=== PATIENT | female | born 1990 | race Caucasian/White ===

== ENCOUNTER 2017-06-29 23:19 | Inpatient (IN) | payer SELFPAY ==
[~2017-06-29] VITALS: Ht 154.9 cm; Wt 57.6 kg
[2017-06-29] MEDS: IV RINGERS SOLUTION,LACTATED 1,000 ML IV SCH (23:20)
--- NOTE | 2017-06-29 23:32 | ED.ADGEN ---
Adult General Chief Complaint Chief Complaint " I took trazodone instead of ibuprofen.. I took some yesterday... and some this morning.... I thought I was taking Ibuprofen... HPI HPI Patient is a 27 year old female who presents with mental status change after overdosage of trazodone. Pt. reportedly took 7 - 100 mg trazodone's this morning. Hx of increased confusion and fatigue. Pt some what poor historian. Pt denies other drug or alcohol use. No recent travel, trauma or ill contacts. Pt. reports she has had a headache the past 2 days. Review of Systems Review of Systems Constitutional: Denies fever or chills [] Eyes: Denies change in visual acuity, redness, or eye pain [] HENT: Denies nasal congestion or sore throat [] Respiratory: Denies cough or shortness of breath [] Cardiovascular: No additional information not addressed in HPI [] GI: Denies abdominal pain, nausea, vomiting, bloody stools or diarrhea [] : Denies dysuria or hematuria [] Musculoskeletal: Denies back pain or joint pain [] Integument: Denies rash or skin lesions [] Neurologic: Hx of headache. denies, focal weakness or sensory changes [] Pt. reportedly very sedated at home - per family Endocrine: Denies polyuria or polydipsia [] All other systems were reviewed and found to be within normal limits, except as documented in this note. Family History Family History Non-contributory Current Medications Current Medications See Nursing for home meds. Allergies Allergies PCN Physical Exam Physical Exam Constitutional: Well developed, well nourished, no acute distress, intoxicated in appearance. [] HENT: Normocephalic, atraumatic, bilateral external ears normal, oropharynx moist, no oral exudates, nose normal. [] Eyes: PERRLA, EOMI, conjunctiva normal, no discharge. [] Neck: Normal range of motion, no tenderness, supple, no stridor. [] Cardiovascular. Bradycardia :Heart rate regular rhythm, no murmur [] Lungs & Thorax: Bilateral breath sounds few wheezes on auscultation [] Abdomen: Bowel sounds normal, soft, no tenderness, no masses, no pulsatile masses. [] Skin: Warm, dry, no erythema, no rash. [] Back: No tenderness, no CVA tenderness. [] Extremities: No tenderness, no cyanosis, no clubbing, ROM intact, no edema. [] Neurologic: Alert and oriented X2, Very sedated, Moves all ext. with noxious stimuli and cross protects, no gross focal deficits noted. DTR + 2 patella and brachial. Awakens with noxious stimuli and will answer questions,but falls back asleep. Psychologic: Affect flat, judgement poor insight, mood depressed. Current Patient Data Lab Results Laboratory Tests Test 06/29/17 22:45 06/29/17 23:25 POC Urine HCG, Qualitative hcg negative (Negative) White Blood Count 6.8 x10^3/uL (4.0-11.0) Red Blood Count 4.21 x10^6/uL (3.50-5.40) Hemoglobin 13.0 g/dL (12.0-15.5) Hematocrit 38.4 % (36.0-47.0) Mean Corpuscular Volume 91 fL (79-100) Mean Corpuscular Hemoglobin 31 pg (25-35) Mean Corpuscular Hemoglobin Concent 34 g/dL (31-37) Red Cell Distribution Width 14.4 % (11.5-14.5) Platelet Count 286 x10^3/uL (140-400) Neutrophils (%) (Auto) 43 % (31-73) Lymphocytes (%) (Auto) 43 % (24-48) Monocytes (%) (Auto) 9 % (0-9) Eosinophils (%) (Auto) 4 % (0-3) H Basophils (%) (Auto) 1 % (0-3) Neutrophils # (Auto) 2.9 x10^3uL (1.8-7.7) Lymphocytes # (Auto) 2.9 x10^3/uL (1.0-4.8) Monocytes # (Auto) 0.6 x10^3/uL (0.0-1.1) Eosinophils # (Auto) 0.3 x10^3/uL (0.0-0.7) Basophils # (Auto) 0.0 x10^3/uL (0.0-0.2) Prothrombin Time 10.5 SEC (9.4-11.4) Prothrombin Time INR 1.0 (0.9-1.1) PTT 23 SEC (23-33) Sodium Level 142 mmol/L (136-145) Potassium Level 2.9 mmol/L (3.5-5.1) *L Chloride Level 106 mmol/L (98-107) Carbon Dioxide Level 22 mmol/L (21-32) Anion Gap 14 (6-14) Blood Urea Nitrogen 4 mg/dL (7-20) L Creatinine 0.8 mg/dL (0.6-1.0) Estimated GFR (Cockcroft-Gault) 87.4 Glucose Level 123 mg/dL (70-99) H Calcium Level 8.3 mg/dL (8.5-10.1) L Magnesium Level 2.3 mg/dL (1.8-2.4) Total Bilirubin 0.2 mg/dL (0.2-1.0) Direct Bilirubin 0.1 mg/dL (0.0-0.2) Aspartate Amino Transferase (AST) 24 U/L (15-37) Alanine Aminotransferase (ALT) 19 U/L (14-59) Alkaline Phosphatase 78 U/L (46-116) Total Protein 6.9 g/dL (6.4-8.2) Albumin 3.5 g/dL (3.4-5.0) Salicylates Level 4.3 mg/dL (2.8-20.0) Salicylate Last Dose Date Unknown Salicylate Last Dose Time Unknown Acetaminophen Level > 2.0 mcg/mL (10-30) L Acetaminophen Last Dose Date Unknown Acetaminophen Last Dose Time Unknown Ethyl Alcohol Level 181 mg/dL (0-10) H EKG EKG My interpretation of EKG shows a sinus bradycardia at 53 bpm, with prolonged QT interval. Some nonspecific anterior lateral changes.[] Radiology/Procedures Radiology/Procedures My interpretation of chest x-ray shows no acute cardiopulmonary findings. My interpretation CT head shows no shift, mass, edema, bleed, or fracture.[] Course & Med Decision Making Course & Med Decision Making Pertinent Labs and Imaging studies reviewed. (See chart for details) Discussed presentation, testing and tx plan with Dr. Wakefield- Admit for observation and hemodynamic support. [] Final Impression Final Impression 1. Drug Overdose[]-trazodone 2. Hypokalemia 3. Polysubstance abuse - Meth use 4. ETOH abuse Problems: Dragon Disclaimer Dragon Disclaimer This electronic medical record was generated, in whole or in part, using a voice recognition dictation system. SHAINA CHANDLER MD Jun 29, 2017 23:32
[2017-06-29] MEDS ORDERED: SODIUM BICARB ADULT 8.4% 50 MEQ/50 ML DISP.SYRIN. IV ONE (23:45)
[2017-06-29] MEDS ORDERED: MVI, ADULT NO.4 WITH VIT K 10 ML, FOLIC ACID SYRINGE for ER 1 MG, THIAMINE 100 MG in IV... IV SCH ×4 (23:45)
[2017-06-29] MEDS ORDERED: MAGNESIUM SULFATE 2GM 50 ML IV ONE (23:45)
[2017-06-29 23:59] LABS: BASO % 1 % (0-3); EOS # 0.3 x10^3/uL (0.0-0.7); EOS % 4 % (0-3); HEMATOCRIT 38.4 % (36.0-47.0); LYMPH # 2.9 x10^3/uL (1.0-4.8); LYMPH % 43 % (24-48); MEAN CORPUSCULAR HEMOGLOBIN 31 pg (25-35); MEAN CORPUSCULAR HGB CONC 34 g/dL (31-37); MEAN CORPUSCULAR VOLUME 91 fL (79-100); MONO # 0.6 x10^3/uL (0.0-1.1); MONO % 9 % (0-9); NEUT # 2.9 x10^3uL (1.8-7.7); NEUT % 43 % (31-73); PLATELET COUNT 286 x10^3/uL (140-400); RED BLOOD COUNT 4.21 x10^6/uL (3.50-5.40); RED CELL DISTRIBUTION WIDTH 14.4 % (11.5-14.5); WHITE BLOOD COUNT 6.8 x10^3/uL (4.0-11.0)
[2017-06-30] VITALS (11 sets, daily range): BP systolic 85–124; BP diastolic 42–68
[2017-06-30 00:03] LABS: BILIRUBIN,URINE NEG (NEG); CLARITY,URINE CLEAR; COLOR,URINE STRAW; GLUCOSE,URINE NEG (NEG)
[2017-06-30 00:04] LABS: BACTERIA,URINE FEW /HPF (0-FEW); BARBITURATES NEG (NEG); BENZODIAZEPINES NEG (NEG); CANNABINOIDS NEG (NEG); COCAINE NEG (NEG); METHADONE NEG (NEG); NITRITE,URINE NEG (NEG); OPIATES NEG (NEG); PHENCYCLIDINE NEG (NEG); RBC,URINE OCC /HPF (0-2); SQUAMOUS EPITHELIAL CELL,UR OCC /LPF; UROBILINOGEN,URINE 0.2 mg/dL (0.2 mg/dL); WBC,URINE OCC /HPF (0-4)
[2017-06-30 00:05] LABS: ACETAMIN > 2.0 mcg/mL (10-30); ETHANOL 181 mg/dL (0-10); SALIC 4.3 mg/dL (2.8-20.0)
[2017-06-30 00:07] LABS: AMPHETAMINE/METHAMPHETAMINE POS (NEG)
[2017-06-30] MEDS ORDERED: MAGNESIUM SULFATE 2GM 50 ML IV ONE (00:11)
[2017-06-30] MEDS ORDERED: SODIUM BICARB ADULT 8.4% 50 MEQ/50 ML DISP.SYRIN. ONE ×2 (00:11→00:12)
[2017-06-30] MEDS ORDERED: THIAMINE 200 MG/2 ML VIAL. IV ONE (00:11)
[2017-06-30] MEDS ORDERED: MVI, ADULT NO.4 WITH VIT K 10 ML VIAL IV ONE (00:11)
[2017-06-30] MEDS ORDERED: FOLIC ACID 5 MG/ML SYRINGE for ER IV ONE (00:11)
[2017-06-30 00:15] LABS: ALBUMIN 3.5 g/dL (3.4-5.0); CALCIUM 8.3 mg/dL (8.5-10.1); CREATININE 0.8 mg/dL (0.6-1.0); DIRECT BILIRUBIN 0.1 mg/dL (0.0-0.2); GFR 87.4; MAGNESIUM 2.3 mg/dL (1.8-2.4); TOTAL BILIRUBIN 0.2 mg/dL (0.2-1.0); TOTAL PROTEIN 6.9 g/dL (6.4-8.2)
[2017-06-30 00:18] LABS: POTASSIUM 2.9 mmol/L (3.5-5.1)
[2017-06-30] MEDS ORDERED: POTASSIUM CL 40MEQ IN 0.9%NACL 1,000 ML IV ONE (00:30)
--- NOTE | 2017-06-30 00:42 | RAD ---
CT Head W/O Contrast: History: 618220.001 Headache, mental status changes, lethargic, accidental overdose. No priors. Comparison: none Axial images were obtained without contrast. The miller and white matter appears normal and symmetrical for the patients age. There is no mass effect, extraaxial fluid collections or hydrocephalus. There is no gross bleed. There is no focal loss of miller-white matter distinction to suggest acute ischemia, i.e. stroke. Impression: No acute findings. RS Compliance Statement: One or more of the following individualized dose reduction techniques were utilized for this examination: 1. Automated exposure control 2. Adjustment of the mA and/or kV according to patient size 3. Use of iterative reconstruction technique Electronically signed by: John Vigil III, MD (06/30/2017 12:39 AM) [id number]
[2017-06-30] MEDS ORDERED: ONDANSETRON PF 4 MG/2 ML VIAL. IV PRN (00:45)
[2017-06-30] MEDS ORDERED: LORazepam 2 MG/ML VIAL IV PRN (04:45)
--- NOTE | 2017-06-30 06:09 | EKG ---
[address] [address] Test Date: 2017-06-30 Test Time: 00:09:27 Pat Name: TIAGO PAUL Department: Room: Gender: F Customer Experience Leader: ANDREAS : 1990 Requested By: SHAINA CHANDLER Order Number: [id number] Reading MD: Measurements Intervals [place] Rate: 53 P: 52 MS: 154 QRS: 45 QRSD: 84 T: 35 QT: 508 QTc: 479 Interpretive Statements SINUS RHYTHM QRS(T) CONTOUR ABNORMALITY CONSIDER ANTEROLATERAL MYOCARDIAL DAMAGE PROLONGED QT POSSIBLY ABNORMAL ECG RI6.01 No previous ECG available for comparison
--- NOTE | 2017-06-30 06:34 | PDOC1 ---
History of Present Illness Reason for Visit: Hypokalemia History of Present Illness Pt states that she was tired last night and took "about 5" trazodone in an effort to sleep. She states she sees a psychiatry group ([facility] in , and they prescribe her medications, none of which are new to her. She has never been hospitalized for SI or depression. She states she has been "a bit stressed " lately, but denies feeling suicidal or severely depressed. States she takes Adderall for ADD and has never done meth. She did drink alcohol last night, but states it is "not a regular occurrence." She does not smoke, and does not have any other known medical problems. She is feeling "fine" this morning. Chief Complaint: OVERDOSE Allergies: Coded Allergies: Penicillins (Verified Allergy, Intermediate, 06/30/17) Past Medical History Cardiac: No pertinent hx Pulmonary: No pertinent hx Psych: Depression, Other (ADD) Past Surgical History: No pertinent history Family History: No pertinent hx Past Social History Smoke: No Alcohol: occassional Drugs: None Domestic Violence: Neg Review of Systems Review Of Systems Fourteen system , review of systems has been reviewed. See HPI for pertinent positives and negative responses, other yeager all other systems are negative, non pertinent or non contributory Allergies: Coded Allergies: Penicillins (Verified Allergy, Intermediate, 06/30/17) Medications Current Medications Multivitamins/ Minerals 10 ml/ Folic Acid 1 mg/ Thiamine HCl 100 mg/Sodium Chloride 1,011.2 ml @ 1,000 mls/ hr Q1H IV Last administered on 06/29/17at 23: 45; Start 06/29/17 at 23:45; Stop 06/30/17 at 01:11; Status DC Sodium Bicarbonate (Sodium Bicarb Adult 8.4% Syr) 50 meq 1X ONCE IV Last administered on 06/29/17at 23:45; Start 06/29/17 at 23:45; Stop 06/30/17 at 01:06 ; Status DC Magnesium Sulfate 50 ml @ 25 mls/hr 1X ONCE IV Last administered on 06/29/17at 23:45; Start 06/29/17 at 23:45; Stop 06/30/17 at 01:44; Status DC Potassium Chloride/Sodium Chloride 1,000 ml @ 200 mls/hr 1X ONCE IV ; Start at 00:30; Stop 06/30/17 at 05:30; Status DC Ondansetron HCl (Zofran) 4 mg PRN Q4HRS PRN IV NAUSEA/VOMITING; Start 06/30/17 at 00:45; Stop 07/01/17 at 00:44 Multivitamins/ Minerals 10 ml/ Folic Acid 1 mg/ Thiamine HCl 100 mg/Lactated Ringer's 1,011.1 ml @ 100 mls/ hr DAILY IV ; Start 06/30/17 at 09:00 Lactated Ringer's 1,000 ml @ 200 mls/hr Q5H IV ; Start 06/30/17 at 03:00 Lorazepam (Ativan) 2 mg 1X PRN PRN IV seiziure; Start 06/30/17 at 04:45 Exam Vital Signs Vital Signs Date Time Temp Pulse Resp B/P (MAP) Pulse Ox O2 Delivery O2 Flow Rate FiO2 06/30/17 06:00 86 108/61 (77) 100 Nasal Cannula 2.0 06/30/17 01:30 97.4 06/29/17 23:19 20 General Appearance: Alert, Oriented X3, Cooperative, No acute distress HEENT: Atraumatic, PERRLA, EOMI, Mucous membr. moist/pink, Other (Neck supple, full ROM, no JVD) Respiratory: Clear to auscultation, Normal air movement Heart: Regular rate, Normal S1, Normal S2, Other (2/6 systolic murmur heard best at left upper sternal border) Abdominal: Normal bowel sounds, Soft, No tenderness, No hepatospenomegaly Extremities: No edema, Normal pulses, No tenderness/swelling Skin: No rashes, No breakdown Neuro: Normal speech, Strength at 5/5 X4 ext, Normal tone, Sensation intact, Cranial nerves 3-12 NL, Reflexes 2+ Psych/Mental Status: Mental status NL, Mood NL Assessment/Plan Assessment/Plan 1. Excessive trazodone intake: Pt not reporting an intent to injure herself. QT was reportedly prolonged on EKG though it is not available at this time. Will continue telemetry. I do not see a need for psychiatry consult, will consult care mgmt. 2. Hypokalemia: 2.9 in ER. Given IV potassium, to be rechecked at 0600. 3. Heart murmur: Pt reports she has never been told she has a murmur. Recommend an echo given her QT prolongation. 4. Excessive alcohol intake: Pt denies regular use. Continue banana bag and CIWA protocol. 5. DVT proph: Pt is low risk for DVT, continue SCD's. 6. Disp: Consult case mgmt. May consider d/c later. COURSE Allergies Coded Allergies Type Severity Reaction Last Updated Verified Penicillins Allergy Intermediate 06/30/17 Yes Laboratory Tests Test 06/29/17 22:45 06/29/17 23:25 06/29/17 23:40 Bedside Urine HCG, Qualitative hcg negative (Negative) White Blood Count 6.8 x10^3/uL (4.0-11.0) Red Blood Count 4.21 x10^6/uL (3.50-5.40) Hemoglobin 13.0 g/dL (12.0-15.5) Hematocrit 38.4 % (36.0-47.0) Mean Corpuscular Volume 91 fL (79-100) Mean Corpuscular Hemoglobin 31 pg (25-35) Mean Corpuscular Hemoglobin Concent 34 g/dL (31-37) Red Cell Distribution Width 14.4 % (11.5-14.5) Platelet Count 286 x10^3/uL (140-400) Neutrophils (%) (Auto) 43 % (31-73) Lymphocytes (%) (Auto) 43 % (24-48) Monocytes (%) (Auto) 9 % (0-9) Eosinophils (%) (Auto) 4 % (0-3) Basophils (%) (Auto) 1 % (0-3) Neutrophils # (Auto) 2.9 x10^3uL (1.8-7.7) Lymphocytes # (Auto) 2.9 x10^3/uL (1.0-4.8) Monocytes # (Auto) 0.6 x10^3/uL (0.0-1.1) Eosinophils # (Auto) 0.3 x10^3/uL (0.0-0.7) Basophils # (Auto) 0.0 x10^3/uL (0.0-0.2) Prothrombin Time 10.5 SEC (9.4-11.4) Prothromb Time International Ratio 1.0 (0.9-1.1) Activated Partial Thromboplast Time 23 SEC (23-33) Sodium Level 142 mmol/L (136-145) Potassium Level 2.9 mmol/L (3.5-5.1) Chloride Level 106 mmol/L (98-107) Carbon Dioxide Level 22 mmol/L (21-32) Anion Gap 14 (6-14) Blood Urea Nitrogen 4 mg/dL (7-20) Creatinine 0.8 mg/dL (0.6-1.0) Estimated GFR (Cockcroft-Gault) 87.4 Glucose Level 123 mg/dL (70-99) Calcium Level 8.3 mg/dL (8.5-10.1) Magnesium Level 2.3 mg/dL (1.8-2.4) Total Bilirubin 0.2 mg/dL (0.2-1.0) Direct Bilirubin 0.1 mg/dL (0.0-0.2) Aspartate Amino Transf (AST/SGOT) 24 U/L (15-37) Alanine Aminotransferase (ALT/SGPT) 19 U/L (14-59) Alkaline Phosphatase 78 U/L (46-116) Total Protein 6.9 g/dL (6.4-8.2) Albumin 3.5 g/dL (3.4-5.0) Salicylates Level 4.3 mg/dL (2.8-20.0) Salicylate Last Dose Date Unknown Salicylate Last Dose Time Unknown Acetaminophen Level > 2.0 mcg/mL (10-30) Acetaminophen Last Dose Date Unknown Acetaminophen Last Dose Time Unknown Ethyl Alcohol Level 181 mg/dL (0-10) Urine Collection Type U cath Urine Color Straw Urine Clarity Clear Urine pH 5.0 Urine Specific [place] <=1.005 Urine Protein Neg (NEG-TRACE) Urine Glucose (UA) Neg mg/dL (NEG) Urine Ketones (Stick) Neg mg/dL (NEG) Urine Blood Neg (NEG) Urine Nitrite Neg (NEG) Urine Bilirubin Neg (NEG) Urine Urobilinogen Dipstick 0.2 mg/dL (0.2 mg/dL) Urine Leukocyte Esterase Neg (NEG) Urine RBC Occ /HPF (0-2) Urine WBC Occ /HPF (0-4) Urine Squamous Epithelial Cells Occ /LPF Urine Bacteria Few /HPF (0-FEW) Urine Opiates Screen Neg (NEG) Urine Methadone Screen Neg (NEG) Urine Barbiturates Neg (NEG) Urine Phencyclidine Screen Neg (NEG) Urine Amphetamine/Methamphetamine Pos (NEG) Urine Benzodiazepines Screen Neg (NEG) Urine Cocaine Screen Neg (NEG) Urine Cannabinoids Screen Neg (NEG) Urine Ethyl Alcohol Pos (NEG) Current Medications Medications (Trade) Dose Ordered Sig/Cassi Route PRN Reason Start Time Stop Time Status Last Admin Dose Admin Multivitamins/ Minerals 10 ml/ Folic Acid 1 mg/ Thiamine HCl 100 mg/Sodium Chloride 1,011.2 ml @ 1,000 mls/ hr Q1H IV 06/29/17 23:45 06/30/17 01:11 DC 06/29/17 23:45 Sodium Bicarbonate (Sodium Bicarb Adult 8.4% Syr) 50 meq 1X ONCE IV 06/29/17 23:45 06/30/17 01:06 DC 06/29/17 23:45 Magnesium Sulfate 50 ml @ 25 mls/hr 1X ONCE IV 06/29/17 23:45 06/30/17 01:44 DC 06/29/17 23:45 Potassium Chloride/Sodium Chloride 1,000 ml @ 200 mls/hr 1X ONCE IV 06/30/17 00:30 06/30/17 05:30 DC Ondansetron HCl (Zofran) 4 mg PRN Q4HRS PRN IV NAUSEA/VOMITING 06/30/17 00:45 07/01/17 00:44 Multivitamins/ Minerals 10 ml/ Folic Acid 1 mg/ Thiamine HCl 100 mg/Lactated Ringer's 1,011.1 ml @ 100 mls/ hr DAILY IV 06/30/17 09:00 Lactated Ringer's 1,000 ml @ 200 mls/hr Q5H IV 06/30/17 03:00 Lorazepam (Ativan) 2 mg 1X PRN PRN IV seiziure 06/30/17 04:45 Vital Signs Date Time Temp Pulse Resp B/P (MAP) Pulse Ox O2 Delivery O2 Flow Rate FiO2 06/30/17 06:00 86 108/61 (77) 100 Nasal Cannula 2.0 06/30/17 01:30 97.4 06/29/17 23:[address] Head W/O Contrast: History: 932358.001 Headache, mental status changes, lethargic, accidental overdose. No priors. Comparison: none Axial images were obtained without contrast. The miller and white matter appears normal and symmetrical for the patients age. There is no mass effect, extraaxial fluid collections or hydrocephalus. There is no gross bleed. There is no focal loss of miller-white matter distinction to suggest acute ischemia, i.e. stroke. Impression: No acute findings. HAYLEE MENJIVAR MD Jun 30, 2017 06:34
[2017-06-30 06:59] LABS: BASO % 1 % (0-3); EOS # 0.1 x10^3/uL (0.0-0.7); EOS % 3 % (0-3); HEMOGLOBIN 11.3 g/dL (12.0-15.5); LYMPH # 1.7 x10^3/uL (1.0-4.8); LYMPH % 31 % (24-48); MEAN CORPUSCULAR HEMOGLOBIN 31 pg (25-35); MEAN CORPUSCULAR HGB CONC 34 g/dL (31-37); MEAN CORPUSCULAR VOLUME 91 fL (79-100); MONO # 0.5 x10^3/uL (0.0-1.1); MONO % 9 % (0-9); NEUT # 3.2 x10^3uL (1.8-7.7); NEUT % 57 % (31-73); PLATELET COUNT 228 x10^3/uL (140-400); RED BLOOD COUNT 3.62 x10^6/uL (3.50-5.40); RED CELL DISTRIBUTION WIDTH 14.6 % (11.5-14.5); WHITE BLOOD COUNT 5.5 x10^3/uL (4.0-11.0)
[2017-06-30 07:12] LABS: ALBUMIN 2.8 g/dL (3.4-5.0); CALCIUM 7.6 mg/dL (8.5-10.1); CREATININE 0.6 mg/dL (0.6-1.0); GFR 121.8; POTASSIUM 3.7 mmol/L (3.5-5.1); TOTAL BILIRUBIN 0.2 mg/dL (0.2-1.0); TOTAL PROTEIN 5.5 g/dL (6.4-8.2)
--- NOTE | 2017-06-30 07:16 | RAD ---
Portable chest, 06/29/2017: History: Overdose The heart size is normal. The lungs are clear. There is no evidence of pleural fluid or pneumothorax. IMPRESSION: No acute cardiopulmonary abnormality is detected.
[2017-06-30] MEDS ORDERED: adderall (07:25)
[2017-06-30] MEDS: IV RINGERS SOLUTION,LACTATED 1,000 ML IV SCH ×2 (08:00→12:16)
[2017-06-30] MEDS ORDERED: MVI, ADULT NO.4 WITH VIT K 10 ML, FOLIC ACID SYRINGE for ER 1 MG, THIAMINE 100 MG in IV... IV SCH ×4 (09:00)
[2017-06-30] MEDS ORDERED: ACETAMINOPHEN 325 MG TABLET PO ONE (13:30)
[2017-06-30] MEDS ORDERED: ACETAMINOPHEN 325 MG TABLET PO PRN (13:30)
[2017-06-30 15:09] LABS: CREATININE 0.8 mg/dL (0.6-1.0); GFR 87.4; POTASSIUM 3.9 mmol/L (3.5-5.1)
--- NOTE | 2017-06-30 15:44 | CARD ---
MR#: [id number] Date of Study: 06/30/2017 Ordering Physician: HAYLEE MENJIVAR, Referring Physician: DIXON ALCANTARA Tech: TIM Sharpe APPROVED REPORT EXAM: Two-dimensional and M-mode echocardiogram with Doppler and color Doppler. Other Information Quality : GoodHR: 83bpm INDICATION Murmur 2D DIMENSIONS Left Atrium(2D)2.4 (1.6-4.0cm)IVSd0.8 (0.7-1.1cm) Aortic Root(2D)3.0 (2.0-3.7cm)LVDd3.9 (3.9-5.9cm) LVOT Diameter2.0 (1.8-2.4cm)PWd0.8 (0.7-1.1cm) LVDs2.5 (2.5-4.0cm)FS (%) 35.3 % SV41.6 mlLVEF(%)65.4 (>50%) Aortic Valve AoV Peak Stanford.139.6cm/sAoV VTI32.4cm AO Peak GR.7.8mmHgLVOT Peak Stanford.118.3cm/s LVOT VTI 25.92cmAO Mean GR.4mmHg CLARIBEL (VMAX)2.72fe0XMC (VTI)2.59cm2 Mitral Valve MV E Nzqewtsb187.9cm/sMV DECEL [id number] MV A Klizyyfe76.6cm/sE/A Ratio1.5 Pulmonary Valve PV Peak Vfwguuti008.9cm/sPV Peak Grad.8mmHg Pulmonary Vein S1 Ydzkpgzn10.5cm/sD2 Wmlpdsos35.9cm/s LEFT VENTRICLE The left ventricle is normal size. There is normal left ventricular wall thickness. The left ventricu lar systolic function is normal and the ejection fraction is within normal range. EF 65% There is nor mal LV segmental wall motion. The left ventricular diastolic function and filling is normal for age. RIGHT VENTRICLE The right ventricle is normal size. The right ventricular systolic function is normal. ATRIA The left atrium size is normal. The right atrium size is normal. The interatrial septum is intact wit h no evidence for an atrial septal defect or patent foramen ovale as noted on 2-D or Doppler imaging. AORTIC VALVE The aortic valve is normal in structure and function. Doppler and Color Flow revealed no significant aortic regurgitation. There is no significant aortic valvular stenosis. There is no aortic valvular v egetation. MITRAL VALVE The mitral valve is normal in structure and function. There is no evidence of mitral valve prolapse. There is no mitral valve stenosis. Doppler and Color Flow revealed no mitral valve regurgitation note d. TRICUSPID VALVE The tricuspid valve is normal in structure and function. Doppler and Color Flow revealed trace tricus pid regurgitation. There is no tricuspid valve prolapse or vegetation. There is no tricuspid valve st enosis. PULMONIC VALVE The pulmonic valve is not well visualized. Doppler and Color Flow revealed trace pulmonic valvular re gurgitation. There is no pulmonic valvular stenosis. GREAT VESSELS The aortic root is normal in size. The IVC is normal in size and collapses >50% with inspiration. PERICARDIAL EFFUSION There is no pleural effusion. There is no evidence of significant pericardial effusion. Critical Notification Critical Value: No <Conclusion> The left ventricular systolic function is normal and the ejection fraction is within normal range. EF 65% There is normal LV segmental wall motion. No significant valvular disease. Signed by : Cliff Gan, Electronically Approved : 06/30/2017 15:44:10
--- NOTE | 2017-06-30 16:12 | DISCH ---
DISCHARGE INSTRUCTIONS-DC Condition on Discharge Condition on Discharge: Stable Problems: Activity after Discharge Activity Instructions for Disc: No restrictions Diet after Discharge Diet after Discharge: Regular Contacting the DR. after DC Call your doctor for: If your condition worsens Follow-Up Follow up with: PCP in 1-2 weeks HAYLEE MENJIVAR MD Jun 30, 2017 16:12
--- NOTE | 2017-06-30 16:19 | PDOC3 ---
Discharge Summary Discharge Summary Date of Admission Date of Admission: Jun 29, 2017 at 23:30 Admitting Diagnosis Trazodone ingestion Alcohol intoxication Hypokalemia Date of Discharge: Jun 30, 2017 Discharge Diagnosis Trazodone ingestion Alcohol intoxication Hypokalemia Laboratory Findings Laboratory Tests Test 06/29/17 22:45 06/29/17 23:25 06/29/17 23:40 06/30/17 06:50 Bedside Urine HCG, Qualitative hcg negative (Negative) White Blood Count 6.8 x10^3/uL (4.0-11.0) 5.5 x10^3/uL (4.0-11.0) Red Blood Count 4.21 x10^6/uL (3.50-5.40) 3.62 x10^6/uL (3.50-5.40) Hemoglobin 13.0 g/dL (12.0-15.5) 11.3 g/dL (12.0-15.5) Hematocrit 38.4 % (36.0-47.0) 33.0 % (36.0-47.0) Mean Corpuscular Volume 91 fL (79-100) 91 fL (79-100) Mean Corpuscular Hemoglobin 31 pg (25-35) 31 pg (25-35) Mean Corpuscular Hemoglobin Concent 34 g/dL (31-37) 34 g/dL (31-37) Red Cell Distribution Width 14.4 % (11.5-14.5) 14.6 % (11.5-14.5) Platelet Count 286 x10^3/uL (140-400) 228 x10^3/uL (140-400) Neutrophils (%) (Auto) 43 % (31-73) 57 % (31-73) Lymphocytes (%) (Auto) 43 % (24-48) 31 % (24-48) Monocytes (%) (Auto) 9 % (0-9) 9 % (0-9) Eosinophils (%) (Auto) 4 % (0-3) 3 % (0-3) Basophils (%) (Auto) 1 % (0-3) 1 % (0-3) Neutrophils # (Auto) 2.9 x10^3uL (1.8-7.7) 3.2 x10^3uL (1.8-7.7) Lymphocytes # (Auto) 2.9 x10^3/uL (1.0-4.8) 1.7 x10^3/uL (1.0-4.8) Monocytes # (Auto) 0.6 x10^3/uL (0.0-1.1) 0.5 x10^3/uL (0.0-1.1) Eosinophils # (Auto) 0.3 x10^3/uL (0.0-0.7) 0.1 x10^3/uL (0.0-0.7) Basophils # (Auto) 0.0 x10^3/uL (0.0-0.2) 0.0 x10^3/uL (0.0-0.2) Prothrombin Time 10.5 SEC (9.4-11.4) Prothromb Time International Ratio 1.0 (0.9-1.1) Activated Partial Thromboplast Time 23 SEC (23-33) Sodium Level 142 mmol/L (136-145) 143 mmol/L (136-145) Potassium Level 2.9 mmol/L (3.5-5.1) 3.7 mmol/L (3.5-5.1) Chloride Level 106 mmol/L (98-107) 110 mmol/L (98-107) Carbon Dioxide Level 22 mmol/L (21-32) 25 mmol/L (21-32) Anion Gap 14 (6-14) 8 (6-14) Blood Urea Nitrogen 4 mg/dL (7-20) 4 mg/dL (7-20) Creatinine 0.8 mg/dL (0.6-1.0) 0.6 mg/dL (0.6-1.0) Estimated GFR (Cockcroft-Gault) 87.4 121.8 Glucose Level 123 mg/dL (70-99) 85 mg/dL (70-99) Calcium Level 8.3 mg/dL (8.5-10.1) 7.6 mg/dL (8.5-10.1) Magnesium Level 2.3 mg/dL (1.8-2.4) Total Bilirubin 0.2 mg/dL (0.2-1.0) 0.2 mg/dL (0.2-1.0) Direct Bilirubin 0.1 mg/dL (0.0-0.2) Aspartate Amino Transf (AST/SGOT) 24 U/L (15-37) 16 U/L (15-37) Alanine Aminotransferase (ALT/SGPT) 19 U/L (14-59) 16 U/L (14-59) Alkaline Phosphatase 78 U/L (46-116) 64 U/L (46-116) Total Protein 6.9 g/dL (6.4-8.2) 5.5 g/dL (6.4-8.2) Albumin 3.5 g/dL (3.4-5.0) 2.8 g/dL (3.4-5.0) Salicylates Level 4.3 mg/dL (2.8-20.0) Salicylate Last Dose Date Unknown Salicylate Last Dose Time Unknown Acetaminophen Level > 2.0 mcg/mL (10-30) Acetaminophen Last Dose Date Unknown Acetaminophen Last Dose Time Unknown Ethyl Alcohol Level 181 mg/dL (0-10) Urine Collection Type U cath Urine Color Straw Urine Clarity Clear Urine pH 5.0 Urine Specific [place] <=1.005 Urine Protein Neg (NEG-TRACE) Urine Glucose (UA) Neg mg/dL (NEG) Urine Ketones (Stick) Neg mg/dL (NEG) Urine Blood Neg (NEG) Urine Nitrite Neg (NEG) Urine Bilirubin Neg (NEG) Urine Urobilinogen Dipstick 0.2 mg/dL (0.2 mg/dL) Urine Leukocyte Esterase Neg (NEG) Urine RBC Occ /HPF (0-2) Urine WBC Occ /HPF (0-4) Urine Squamous Epithelial Cells Occ /LPF Urine Bacteria Few /HPF (0-FEW) Urine Opiates Screen Neg (NEG) Urine Methadone Screen Neg (NEG) Urine Barbiturates Neg (NEG) Urine Phencyclidine Screen Neg (NEG) Urine Amphetamine/Methamphetamine Pos (NEG) Urine Benzodiazepines Screen Neg (NEG) Urine Cocaine Screen Neg (NEG) Urine Cannabinoids Screen Neg (NEG) Urine Ethyl Alcohol Pos (NEG) BUN/Creatinine Ratio 7 (6-20) Albumin/Globulin Ratio 1.0 (1.0-1.7) Test 06/30/17 14:55 Sodium Level 142 mmol/L (136-145) Potassium Level 3.9 mmol/L (3.5-5.1) Chloride Level 109 mmol/L (98-107) Carbon Dioxide Level 25 mmol/L (21-32) Anion Gap 8 (6-14) Blood Urea Nitrogen 3 mg/dL (7-20) Creatinine 0.8 mg/dL (0.6-1.0) Estimated GFR (Cockcroft-Gault) 87.4 Glucose Level 116 mg/dL (70-99) Calcium Level 8.0 mg/dL (8.5-10.1) Magnesium Level 2.0 mg/dL (1.8-2.4) Hospital Course Pt was treated w/ IVF (banana bag) and observed on telemetry, no significant arrhythmias noted. QTc on EKG today w/ QTc 480, per poison control ok to d/c home. Pt had incidental murmur on exam, echo was normal. Hypokalemia was replaced w/ IV KCL, and K+ at discharge was normal. Pt advised to avoid alcohol , avoid trazodone, and f/u with PCP. Pt states there was never any intent to hurt herself,and she just made a mistake. There is no sign of clinical depression on exam. Condition at Discharge: Stable Home Meds Reported Medications [adderall] No Conflict Check 06/30/17 Inpatient Meds Current Medications Multivitamins/ Minerals 10 ml/ Folic Acid 1 mg/ Thiamine HCl 100 mg/Sodium Chloride 1,011.2 ml @ 1,000 mls/ hr Q1H IV Last administered on 06/29/17at 23: 45; Start 06/29/17 at 23:45; Stop 06/30/17 at 01:11; Status DC Sodium Bicarbonate (Sodium Bicarb Adult 8.4% Syr) 50 meq 1X ONCE IV Last administered on 06/29/17at 23:45; Start 06/29/17 at 23:45; Stop 06/30/17 at 01:06 ; Status DC Magnesium Sulfate 50 ml @ 25 mls/hr 1X ONCE IV Last administered on 06/29/17at 23:45; Start 06/29/17 at 23:45; Stop 06/30/17 at 01:44; Status DC Potassium Chloride/Sodium Chloride 1,000 ml @ 200 mls/hr 1X ONCE IV Last administered on 06/30/17at 05:30; Start 06/30/17 at 00:30; Stop 06/30/17 at 05:30 ; Status DC Ondansetron HCl (Zofran) 4 mg PRN Q4HRS PRN IV NAUSEA/VOMITING; Start 06/30/17 at 00:45; Stop 07/01/17 at 00:44 Multivitamins/ Minerals 10 ml/ Folic Acid 1 mg/ Thiamine HCl 100 mg/Lactated Ringer's 1,011.1 ml @ 100 mls/ hr DAILY IV ; Start 06/30/17 at 09:00 Lactated Ringer's 1,000 ml @ 200 mls/hr Q5H IV Last administered on 06/30/17at 12:16; Start 06/30/17 at 03:00 Lorazepam (Ativan) 2 mg 1X PRN PRN IV seiziure; Start 06/30/17 at 04:45 Acetaminophen (Tylenol) 650 mg PRN Q6HRS PRN PO PAIN / TEMP Last administered on 06/30/17at 13:33; Start 06/30/17 at 13:30 Magnesium Sulfate 50 ml @ As Directed STK-MED ONCE IV ; Start 06/30/17 at 00:11 ; Stop 06/30/17 at 14:58; Status DC Sodium Bicarbonate (Sodium Bicarb Adult 8.4% Syr) 50 meq STK-MED ONCE .ROUTE ; Start 06/30/17 at 00:11; Stop 06/30/17 at 14:58; Status DC Thiamine HCl 200 mg STK-MED ONCE IV ; Start 06/30/17 at 00:11; Stop 06/30/17 at 14:58; Status DC Multivitamins/ Minerals (Infuvite Adult) 10 ml STK-MED ONCE IV ; Start 06/30/17 at 00:11; Stop 06/30/17 at 14:58; Status DC Folic Acid (FOLIC ACID SYRINGE for ER) 5 mg STK-MED ONCE IV ; Start 06/30/17 at 00:11; Stop 06/30/17 at 14:58; Status DC Sodium Bicarbonate (Sodium Bicarb Adult 8.4% Syr) 50 meq STK-MED ONCE .ROUTE ; Start 06/30/17 at 00:12; Stop 06/30/17 at 14:58; Status DC Acetaminophen (Tylenol) 325 mg STK-MED ONCE PO ; Start 06/30/17 at 13:30; Stop 06/30/17 at 15:02; Status DC Active Scripts Active Reported [adderall] Activity: as tolerated Diet: Regular Follow-up Plan PCP in 1-2 weeks HAYLEE MENJIVAR MD Jun 30, 2017 16:19
--- NOTE | 2017-06-30 18:18 | EKG ---
[address] [address] Test Date: 2017-06-30 Test Time: 15:52:03 Pat Name: TIAGO PAUL Department: Room: [id number] 1 Gender: F Medical Billing Representative: MANDA : 1990 Requested By: HAYLEE MENJIVAR Order Number: [id number] Reading MD: Measurements Intervals [place] Rate: 65 P: 40 WV: 136 QRS: 34 QRSD: 80 T: 30 QT: 462 QTc: 481 Interpretive Statements SINUS RHYTHM ATRIAL PREMATURE COMPLEX(ES) T ABNORMALITY IN ANTEROSEPTAL LEADS PROLONGED QT ABNORMAL ECG RI6.01 No previous ECG available for comparison
== END 2017-06-30 16:45 | disposition home or self-care (01) | DRG 918 ==
LOC: ER 23:19 → ICU 23:30
PROVIDERS: ADMIT Internal Medicine; ATTEND Internal Medicine
DX: T43.211A Poisoning by selective serotonin and norepinephrine reuptake inhibitors, accidental (unintentional), initial encounter (principal); E87.6 Hypokalemia; R01.1 Cardiac murmur, unspecified; F19.10 Other psychoactive substance abuse, uncomplicated; F15.90 Other stimulant use, unspecified, uncomplicated; F10.129 Alcohol abuse with intoxication, unspecified; Y90.6 Blood alcohol level of 120-199 mg/100 ml; Z71.41 Alcohol abuse counseling and surveillance of alcoholic; Y92.89 Other specified places as the place of occurrence of the external cause; Z88.0 Allergy status to penicillin
CPT/HCPCS: 36415; 51702; 70450; 71045; 80048; 80053; 80076; 80307; 81001; 81025; 83735; 85025; 85610; 85730; 87641; 93005; 93306; 96365; 96368; 96375; G0480; J3475; J7120; 99285-25; G0479; J7030